=== PATIENT | male | born 1965 | race Caucasian/White ===

== ENCOUNTER 2023-12-04 12:23 | Inpatient (IN) | payer OTHER ==
[~2023-12-04] VITALS: Ht 185.4 cm; Wt 95.6 kg
[2023-12-04] MEDS ORDERED: SODIUM CHLORIDE 0.9% 1,000 ML IV ONE (12:30)
[2023-12-04 13:18] LABS: Basophils # (auto) 0.1 10 ^3/uL (0-0.2); Hemoglobin 16.5 g/dL (13.5-17.5); Lymphocytes # (auto) 1.4 10 ^3/uL (0.4-5.4)
[2023-12-04 13:20] LABS: Basophils % (auto) 0.8 % (0.0-2.0); Eosinophils # (auto) 0.4 10 ^3/uL (0-0.8); Eosinophils % (auto) 4.7 % (0.0-7.0); Hematocrit 47.6 % (41.0-53.0); Lymphocytes % (auto) 16.1 % (10.0-50.0); Mean Corpuscular Hemoglobin 37.5 pg (28.0-32.0); Mean Corpuscular Hgb Conc. 34.8 g/dL (32.0-36.0); Monocytes % (auto) 11.1 % (0.0-12.0); Neutrophils # (auto) 6.1 10 ^3/uL (1.6-8.6); Neutrophils % (auto) 67.3 % (37.0-80.0); Nucleated Red Blood Cells % 0.1 %; Red Blood Cells 4.41 10^6/uL (4.5-5.90); Red Cell Distribution Width 14.1 % (11.8-14.3)
[2023-12-04] MEDS: VANCOMYCIN 1GM/200ML 200 ML IV ONE (13:22)
[2023-12-04] MEDS: SODIUM CHLORIDE 0.9% 2,400 ML IV ONE (13:22)
[2023-12-04 13:30] VITALS: PULSE 93; RESP 18; O2SAT 100
[2023-12-04 13:45] LABS: Alanine Aminotransferase 117 U/L (7-40); Albumin 5.1 g/dL (3.2-4.8); Alkaline Phosphatase 244 U/L (46-116); Anion Gap 10 (5-15); Aspartate Aminotransferase 68 U/L (13-40); BUN/Creatinine Ratio 13.4 (10.0-20.0); Bilirubin, Total 0.6 mg/dL (0.2-1.0); Blood Urea Nitrogen 24 mg/dL (9-23); Calcium 10.3 mg/dL (8.5-10.1); Carbon Dioxide 20 mmol/L (20-30); Chloride 103 mmol/L (98-107); Glucose 110 mg/dL (74-106); Potassium 4.1 mmol/L (3.5-5.1); Sodium 133 mmol/L (136-145); Total Protein 8.4 g/dL (5.7-8.2)
[2023-12-04 14:15] LABS: Lactic Acid w/Reflex 2.8 mmol/L (0.4-2.0)
[2023-12-04] MEDS ORDERED: ACETAMINOPHEN 500 MG TAB PO PRN (15:15)
[2023-12-04] MEDS ORDERED: NITROGLYCERIN 0.4 MG SL TAB SL PRN (15:15)
[2023-12-04] MEDS ORDERED: MORPHINE SULFATE INJ 2 MG/ml SYRG IV PRN (15:15)
[2023-12-04] MEDS ORDERED: VANCOMYCIN PER PHARMACY 0 MG IV SCH (15:15)
[2023-12-04] MEDS: PIPERACILLIN-TAZOB 3.375GM 100 ML IV ONE (15:19)
[2023-12-04] MEDS: SODIUM CHLORIDE 0.9% 1,000 ML IV SCH (15:39)
[2023-12-04] MEDS: NOREPINEPHRINE 8 MG/250ML KIT 250 ML IV SCH (15:59)
[2023-12-04 18:10] LABS: Urine Bacteria None Seen /hpf (None Seen)
[2023-12-04 18:26] LABS: Urine Blood Negative /uL (Negative); Urine Clarity Clear (Clear); Urine Color Light-Yellow (Yellow); Urine Hyaline Cast MANY /lpf (0 - 2); Urine Mucus FEW (None Seen); Urine Protein, UAD TRACE (Negative); Urine Specific Gravity 1.019 (1.001-1.035); Urine Urobilinogen Normal (Negative); Urine WBC 1 /hpf (0 - 3)
[2023-12-04 18:27] LABS: Erythrocyte Sedimentation Rate 14 mm/hr (0-20)
[2023-12-04 19:30] VITALS: PULSE 106; RESP 16; O2SAT 99
[2023-12-04] MEDS: metroNIDAZOLE 500MG/100ML 100 ML IV SCH (22:49)
[2023-12-04] MEDS: CEFEPIME 1GM/ 50ML 50 ML IV SCH (23:32)
[2023-12-05] MEDS: IOHEXOL 350 MG/ML 100ML IJ ONE (01:50)
[2023-12-05] MEDS: MORPHINE SULFATE INJ 2 MG/ml SYRG IV PRN (01:55)
[2023-12-05] MEDS: ONDANSETRON HCL 4 MG/2 ML VIAL IV PRN (01:55)
[2023-12-05 05:02] LABS: Alanine Aminotransferase 85 U/L (7-40); Albumin 4.3 g/dL (3.2-4.8); Alkaline Phosphatase 172 U/L (46-116); Anion Gap 12 (5-15); Aspartate Aminotransferase 44 U/L (13-40); BUN/Creatinine Ratio 17.1 (10.0-20.0); Blood Urea Nitrogen 18 mg/dL (9-23); Calcium 9.4 mg/dL (8.7-10.4); Carbon Dioxide 18 mmol/L (20-30); Chloride 107 mmol/L (98-107); Glucose 103 mg/dL (74-106); Potassium 3.6 mmol/L (3.5-5.1); Sodium 137 mmol/L (136-145)
[2023-12-05 05:03] LABS: Bilirubin, Total 0.5 mg/dL (0.2-1.0); Total Protein 6.9 g/dL (5.7-8.2)
[2023-12-05 05:12] LABS: Basophils # (auto) 0 10 ^3/uL (0-0.2); Eosinophils # (auto) 0.2 10 ^3/uL (0-0.8); Lymphocytes # (auto) 0.9 10 ^3/uL (0.4-5.4); Nucleated Red Blood Cells % 0.1 %
[2023-12-05 05:15] LABS: Basophils % (auto) 0.8 % (0.0-2.0); Eosinophils % (auto) 3.8 % (0.0-7.0); Hematocrit 40.2 % (41.0-53.0); Hemoglobin 13.9 g/dL (13.5-17.5); Lymphocytes % (auto) 15.8 % (10.0-50.0); Mean Corpuscular Hemoglobin 38.5 pg (28.0-32.0); Mean Corpuscular Hgb Conc. 34.5 g/dL (32.0-36.0); Mean Corpuscular Volume 111.6 fL (80.0-100.0); Monocytes # (auto) 0.5 10 ^3/uL (0-1.3); Monocytes % (auto) 9.2 % (0.0-12.0); Neutrophils # (auto) 4.1 10 ^3/uL (1.6-8.6); Neutrophils % (auto) 70.4 % (37.0-80.0); Red Blood Cells 3.61 10^6/uL (4.5-5.90); Red Cell Distribution Width 14.4 % (11.8-14.3); White Blood Cell 5.8 10^3/uL (4.4-10.8)
[2023-12-05 07:45] VITALS: PULSE 96; RESP 15; O2SAT 96
[2023-12-05] MEDS: VANCOMYCIN 1GM/200ML 200 ML IV SCH (09:03)
[2023-12-05] MEDS: HYDROcodone-ACET 5/325MG TAB PO PRN (14:04)
[2023-12-05 15:59] LABS: Lipase 74 U/L (12-53)
[2023-12-05 16:01] LABS: Amylase 151 U/L (30-118)
[2023-12-05 19:30] VITALS: PULSE 116; RESP 12; O2SAT 93
[2023-12-05] MEDS: CEFEPIME 2GM/50ML NS 50 ML IV SCH (23:19)
[2023-12-06 05:06] LABS: Basophils # (auto) 0.1 10 ^3/uL (0-0.2); Eosinophils # (auto) 0.2 10 ^3/uL (0-0.8); Eosinophils % (auto) 2.6 % (0.0-7.0); Monocytes # (auto) 0.6 10 ^3/uL (0-1.3); Neutrophils # (auto) 4.7 10 ^3/uL (1.6-8.6); Red Cell Distribution Width 13.8 % (11.8-14.3)
[2023-12-06 05:09] LABS: Basophils % (auto) 0.8 % (0.0-2.0); Hematocrit 39.7 % (41.0-53.0); Hemoglobin 14.1 g/dL (13.5-17.5); Lymphocytes # (auto) 0.6 10 ^3/uL (0.4-5.4); Mean Corpuscular Hemoglobin 37.9 pg (28.0-32.0); Mean Corpuscular Hgb Conc. 35.5 g/dL (32.0-36.0); Mean Corpuscular Volume 106.7 fL (80.0-100.0); Monocytes % (auto) 9.4 % (0.0-12.0); Neutrophils % (auto) 77.2 % (37.0-80.0); Red Blood Cells 3.72 10^6/uL (4.5-5.90); White Blood Cell 6.1 10^3/uL (4.4-10.8)
[2023-12-06 05:21] LABS: Alanine Aminotransferase 99 U/L (7-40); Albumin 4.5 g/dL (3.2-4.8); Alkaline Phosphatase 197 U/L (46-116); Anion Gap 14 (5-15); Aspartate Aminotransferase 59 U/L (13-40); BUN/Creatinine Ratio 19.8 (10.0-20.0); Bilirubin, Total 0.6 mg/dL (0.2-1.0); Blood Urea Nitrogen 17 mg/dL (9-23); Calcium 9.7 mg/dL (8.7-10.4); Carbon Dioxide 16 mmol/L (20-30); Chloride 106 mmol/L (98-107); Glucose 121 mg/dL (74-106); Potassium 3.4 mmol/L (3.5-5.1); Sodium 136 mmol/L (136-145); Total Protein 7.2 g/dL (5.7-8.2)
[2023-12-06 08:00] VITALS: PULSE 112; RESP 16; O2SAT 96
[2023-12-06 11:09] LABS: Lipase 61 U/L (12-53)
[2023-12-06 11:11] LABS: Amylase 114 U/L (30-118)
[2023-12-06 12:00] VITALS: BP 125/92; PULSE 90; RESP 20; TEMP 97.9; O2SAT 98
[2023-12-06 13:50] VITALS: BP 125/92; PULSE 90; RESP 20; TEMP 98.2; O2SAT 98
[2023-12-06] MEDS ORDERED: LOVA40TA72 PO (14:20)
[2023-12-06] MEDS ORDERED: GABA-1250 PO (14:20)
[2023-12-06] MEDS ORDERED: TRAZ-227 PO (14:20)
[2023-12-06] MEDS ORDERED: OMEP20TA PO (14:20)
[2023-12-06 16:00] VITALS: BP 114/87; PULSE 98; RESP 20; TEMP 97.9; O2SAT 100
[2023-12-06] MEDS: TEMAZEPAM 15 MG CAP PO PRN (19:55)
[2023-12-06 20:00] VITALS: PULSE 99
[2023-12-06 21:00] VITALS: BP 127/74; PULSE 96; RESP 18; TEMP 98.1; O2SAT 98
[2023-12-06] MEDS: VANCOMYCIN 1GM/200ML 200 ML IV SCH (23:18)
[2023-12-07 05:00] VITALS: BP 126/84; PULSE 107; RESP 19; TEMP 97.6; O2SAT 96
[2023-12-07] MEDS: metroNIDAZOLE 500 MG TAB PO SCH (07:31)
[2023-12-07 07:47] LABS: Alanine Aminotransferase 107 U/L (7-40); Alkaline Phosphatase 198 U/L (46-116); Amylase 97 U/L (30-118); Anion Gap 10 (5-15); Aspartate Aminotransferase 68 U/L (13-40); Blood Urea Nitrogen 13 mg/dL (9-23); Calcium 9.8 mg/dL (8.5-10.1); Carbon Dioxide 18 mmol/L (20-30); Chloride 109 mmol/L (98-107); Glucose 119 mg/dL (74-106); Potassium 3.7 mmol/L (3.5-5.1); Sodium 137 mmol/L (136-145)
[2023-12-07 07:48] LABS: Albumin 4.6 g/dL (3.2-4.8); Bilirubin, Total 0.6 mg/dL (0.2-1.0); Total Protein 7.3 g/dL (5.7-8.2)
[2023-12-07 08:00] VITALS: PULSE 86; PULSE 97; RESP 20; O2SAT 98
[2023-12-07 08:07] LABS: BUN/Creatinine Ratio 15.1 (10.0-20.0)
[2023-12-07] MEDS: cefTRIAXone 1GM/50ML D5W 50 ML IV SCH (08:47)
[2023-12-07 09:00] VITALS: BP 120/78; PULSE 97; RESP 20; TEMP 97.5; O2SAT 96
[2023-12-07 09:17] LABS: Lipase 58 U/L (12-53)
[2023-12-07 13:00] VITALS: BP 135/81; PULSE 92; RESP 17; TEMP 97.5; O2SAT 100
[2023-12-07 17:00] VITALS: BP 127/79; PULSE 104; RESP 17; TEMP 98; O2SAT 97
[2023-12-07] MEDS: VANCOMYCIN 1GM/200ML 200 ML IV SCH (17:00)
[2023-12-08] MEDS ORDERED: LEVO500T91 PO (09:52)
== END 2023-12-07 19:25 | disposition home or self-care (01) | DRG 871 ==
LOC: ER 12:23 → OVERFLOW 15:14 → TELE-WESTW 12-06 13:05
PROVIDERS: ADMIT Internal Medicine; ATTEND Internal Medicine
DX: A41.9 Sepsis, unspecified organism (principal); K85.90 Acute pancreatitis without necrosis or infection, unspecified; R65.21 Severe sepsis with septic shock; N17.9 Acute kidney failure, unspecified; N39.0 Urinary tract infection, site not specified; C18.9 Malignant neoplasm of colon, unspecified; I95.81 Postprocedural hypotension; E66.3 Overweight; I10 Essential (primary) hypertension; R74.8 Abnormal levels of other serum enzymes; K21.9 Gastro-esophageal reflux disease without esophagitis; E78.5 Hyperlipidemia, unspecified; G47.00 Insomnia, unspecified; Z85.048 Personal history of other malignant neoplasm of rectum, rectosigmoid junction, and anus; Z90.49 Acquired absence of other specified parts of digestive tract; Z93.3 Colostomy status; Z68.27 Body mass index [BMI] 27.0-27.9, adult
CPT/HCPCS: 36415; 71045; 71275; 74176; 76705; 80053; 80202; 81001; 82150; 82962; 83605; 83690; 83880; 84484; 85025; 85379; 85652; 86141; 87040; 87086; 87088; 87186; 93970; 96365; 96366; G0378; J0692; J1642; J2405; J2543; J3490